=== PATIENT | male | born 1990 | race Caucasian/White ===

== ENCOUNTER → 2018-11-17 | Emergency (ER) | payer OTHER ==
[2018-11-17] MEDS: ACETAMINOPHEN 325 MG TAB PO (21:23)
[2018-11-17] MEDS: DIPHTH/TET/ACEL PERTUSS (ADULT) 0.5 ML VIAL IM* (21:24)
[2018-11-17] MEDS: LIDOCAINE 1% (MDV) 10 ML INJ INJ (21:24)
== END | disposition home or self-care (01) ==
LOC: FTE 20:58
DX: S61.211A Laceration without foreign body of left index finger without damage to nail, initial encounter (principal); F17.210 Nicotine dependence, cigarettes, uncomplicated; W26.8XXA Contact with other sharp object(s), not elsewhere classified, initial encounter; Y92.9 Unspecified place or not applicable; Z23 Encounter for immunization
CPT/HCPCS: 12001; 90471; 90715; 99283-25